=== PATIENT | male | born 1960 | race African-American/Black ===

== ENCOUNTER 2025-06-28 12:26 | Emergency (ER) | payer BC ==
[~2025-06-28] VITALS: Ht 188 cm; Wt 106.6 kg
[2025-06-28 13:59] VITALS: BP 136/81; TEMP 98.2; O2SAT 98
== END 2025-06-28 14:01 | disposition home or self-care (01) ==
LOC: ER 12:44
DX: R22.2 Localized swelling, mass and lump, trunk (principal); E78.5 Hyperlipidemia, unspecified; F32.A Depression, unspecified; I51.9 Heart disease, unspecified
CPT/HCPCS: 71045-TC